=== PATIENT | male | born 1970 | race Hispanic/Latino ===

== ENCOUNTER 2020-08-31 16:24 | Inpatient (IN) | payer OTHER ==
[~2020-08-31 16:24] MED LIST: Iopamidol-370 76% 500 ML 1 ML ONE
[2020-08-31] MEDS ORDERED: cefTRIAXone\\ROCEPHIN 2 GM VIAL ONE (16:42)
[2020-08-31] MEDS ORDERED: Aspirin Chewable 81 MG TAB ONE (16:42)
[2020-08-31] MEDS ORDERED: Azithromycin 500 MG VIAL ONE (16:42)
[2020-08-31 17:27] LABS: ALT (SGPT) 146 U/L (8-55); AST (SGOT) 156 U/L (5-34); Albumin 3.7 g/dL (3.5-5.0); Alkaline Phosphatase 99 U/L (40-110); Anion Gap 13 mmol/L (10-20); BUN (Urea Nitrogen) 13 mg/dL (8.9-20.6); Bilirubin, Total 3.9 mg/dL (0.2-1.2); CK (CPK) 316 U/L (30-200); Calc. Creatinine Clearance 0 mL/min (70-130); Calcium 8.5 mg/dL (7.8-10.44); Carbon Dioxide 27 mmol/L (22-29); Chloride 100 mmol/L (98-107); Globulin 4.5 g/dL (2.4-3.5); Glucose 120 mg/dL (70-105); Lipase 6 U/L (8-78); Potassium 4.7 mmol/L (3.5-5.1); Protein, Total 8.2 g/dL (6.0-8.3); Sodium 135 mmol/L (136-145)
[2020-08-31 17:30] LABS: Band 21 % (5-11); Eosinophils 1 % (0-10); Hemoglobin 18.6 g/dL (14.0-18.0); Lymphocytes 8 % (21-51); MDiff Complete? YES; Mean Corpuscular HGB CONC 32.4 g/dL (32.0-36.0); Mean Corpuscular Hemoglobin 31.9 pg (27.0-31.0); Mean Corpuscular Volume 98.5 fL (78.0-98.0); Mean Platelet Volume 9.1 fL (7.4-10.4); Monocytes 8 % (0-10); Neutrophil 59 % (42-75); Platelet Count 131 thou/uL (130-400); Platelet Morphology Comment Appears Adequate; RBC Distribution Width 12.5 % (11.5-14.5); RBC Morphology Normal; Reactive Lymphocytes 3 % (0-10); Red Blood Cell (RBC) Count 5.83 mill/uL (4.70-6.10); White Blood Cell (WBC) Count 20.9 thou/uL (4.8-10.8)
[2020-08-31] MEDS ORDERED: Acetaminophen 500 MG TAB ONE (17:45)
[2020-08-31] MEDS ORDERED: Vancomycin 1 GM/200 ML BAG ONE (18:22)
--- NOTE | 2020-08-31 18:25 | PDOC.HHP ---
Hospitalist HPI Shortness of breath History of Present Illness: The patient is a 49-year-old male with no significant past medical history who presented to an outside ER facility planing of left-sided lower chest and flank pain. His pain was worse with inspiration. He underwent CT scan of the abdomen which did not show any acute abdominal findings but revealed findings suggestive of pneumonia bilaterally. The patient left AMA and try to go back home, however, he was unable to do that due to shortness of breath and instead he presented to our ER. Upon presentation, he was found to be hypoxic and his initial work-up revealed leukocytosis. His D-dimer was slightly elevated subsequent CT angiogram of the chest revealed bilateral pneumonia. Past History: PMHx: No past medical history PSHx: Appendectomy, cholecystectomy FHx: Noncontributory to his current presentation Social: Socially, denies smoking or illicit drug use. Hospitalist HPI ROS All other systems reviewed; all pertinent +/- noted in HPI/Subj Hospitalist Exam General Appearance: awake alert ENT: normocephalic atraumatic Neck: supple Heart: RRR Respiratory: normal chest expansion, rhonchi, tachypneic Extremities: no cyanosis, no clubbing Neurological: cranial nerve grossly intact, no focal deficits Hospitalist Results Result Diagrams: 08/31/20 16:48 08/31/20 16:48 Lab results: Laboratory Last Values WBC 20.9 thou/uL (4.8-10.8) H 08/31/20 16:48 RBC 5.83 mill/uL (4.70-6.10) 08/31/20 16:48 Hgb 18.6 g/dL (14.0-18.0) H 08/31/20 16:48 Hct 57.4 % (42.0-52.0) H 08/31/20 16:48 MCV 98.5 fL (78.0-98.0) H 08/31/20 16:48 MCH 31.9 pg (27.0-31.0) H 08/31/20 16:48 MCHC 32.4 g/dL (32.0-36.0) 08/31/20 16:48 RDW 12.5 % (11.5-14.5) 08/31/20 16:48 Plt Count 131 thou/uL (130-400) 08/31/20 16:48 MPV 9.1 fL (7.4-10.4) 08/31/20 16:48 Neutrophils % (Manual) 59 % (42-75) 08/31/20 16:48 Band Neuts % (Manual) 21 % (5-11) H 08/31/20 16:48 Lymphocytes % (Manual) 8 % (21-51) L 08/31/20 16:48 Reactive Lymphs % 3 % (0-10) 08/31/20 16:48 Monocytes % (Manual) 8 % (0-10) 08/31/20 16:48 Eosinophils % (Manual) 1 % (0-10) 08/31/20 16:48 Plt Morphology Comment Appears Adequate 08/31/20 16:48 RBC Morph Comment Normal 08/31/20 16:48 D-Dimer 0.47 *mcg/mL (0.27-0.43) H 08/31/20 16:48 Sodium 135 mmol/L (136-145) L 08/31/20 16:48 Potassium 4.7 mmol/L (3.5-5.1) 08/31/20 16:48 Chloride 100 mmol/L (98-107) 08/31/20 16:48 Carbon Dioxide 27 mmol/L (22-29) 08/31/20 16:48 Anion Gap 13 mmol/L (10-20) 08/31/20 16:48 BUN 13 mg/dL (8.9-20.6) 08/31/20 16:48 Creatinine 0.91 mg/dL (0.7-1.3) 08/31/20 16:48 Estimated GFR (MDRD) 89 08/31/20 16:48 Glucose 120 mg/dL (70-105) H 08/31/20 16:48 Lactic Acid 1.7 mmol/L (0.5-2.2) 08/31/20 17:10 Calcium 8.5 mg/dL (7.8-10.44) 08/31/20 16:48 Total Bilirubin 3.9 mg/dL (0.2-1.2) H 08/31/20 16:48 AST 156 U/L (5-34) H 08/31/20 16:48 ALT 146 U/L (8-55) H 08/31/20 16:48 Alkaline Phosphatase 99 U/L (40-110) 08/31/20 16:48 Creatine Kinase 316 U/L (30-200) H 08/31/20 16:48 Troponin I 0.017 ng/mL (< 0.028) 08/31/20 16:48 B-Natriuretic Peptide 28.5 pg/mL (0-100) 08/31/20 17:10 Serum Total Protein 8.2 g/dL (6.0-8.3) 08/31/20 16:48 Albumin 3.7 g/dL (3.5-5.0) 08/31/20 16:48 Globulin 4.5 g/dL (2.4-3.5) H 08/31/20 16:48 Albumin/Globulin Ratio 0.8 g/dL (1.2-2.2) L 08/31/20 16:48 Lipase 6 U/L (8-78) L 08/31/20 16:48 Hospitalist H&P A/P (1) Acute respiratory failure with hypoxia Code(s): J96.01 - ACUTE RESPIRATORY FAILURE WITH HYPOXIA Status: Acute (2) Sepsis Code(s): A41.9 - SEPSIS, UNSPECIFIED ORGANISM Status: Acute (3) Pneumonia Code(s): J18.9 - PNEUMONIA, UNSPECIFIED ORGANISM Status: Acute Plan: The patient will be admitted to the hospital for management of sepsis secondary to bilateral pneumonia. Start IV NS at 75 cc/h. Start IV ceftriaxone and azithromycin to cover for community-acquired pneumonia.. Supplemental oxygen as needed. He recently tested negative for COVID-19 but due to his symptoms and involvement of both lungs, we will repeat the test. If the patient is Covid positive, we will initiate corticosteroids and consider starting remdesivir. Enoxaparin for DVT prophylaxis.
--- NOTE | 2020-08-31 18:27 | CT ---
CT ANGIOGRAM CHEST WITH 3D RENDERING: Date: 08/31/2020 HISTORY: Elevated D-Dimer. Flank pain. Shortness of breath. Abnormal x-ray findings. FINDINGS: There is a small left pleural effusion and minimal right pleural fluid or pleural thickening. There a re bibasilar pulmonary parenchymal changes, more confluent in the left base, evidence for bilateral p neumonia. There are some smaller scattered ground-glass opacity changes in the upper and mid lung zon es. Features could possibly be related to COVID pneumonia, but are not characteristic. There is moderate motion artifact which lowers the sensitivity of this study, particularly regarding evaluating mid and distal smaller caliber pulmonary arteries, particularly in the mid and lower lung zones. There is certainly no evidence for central pulmonary artery thrombosis. No mediastinal mass or adenopathy. No pericardial effusion. Visualized abdomen is unremarkable. IMPRESSION: 1. No convincing evidence for pulmonary artery embolism, although the mid and smaller caliber branch es, particularly in the lower lobes, are somewhat less than optimally imaged. 2. Small left pleural effusion and minimal right pleural thickening or minute effusion with bibasila r pulmonary and parenchymal changes, more confluent in the left lower lobe, certainly consistent with pneumonia, but not definitively COVID pneumonia. 3. Status post cholecystectomy. 4. No evidence for other significant acute process. POS: RRE
[2020-08-31] MEDS ORDERED: Ondansetron PF 4 MG/2 ML Vial ONE (18:36)
[2020-08-31 18:54] LABS: Bacteria/HPF None Seen HPF (None Seen); Bilirubin 1+ (Negative); Blood, Urine 1+ (Negative); Clarity Clear (Clear); Glucose, Urine (Dipstick) Normal (Negative); Ketone, Urine Negative (Negative); Leukocyte Negative Leu/uL (Negative); Nitrite Negative (Negative); Protein, Urine (Dipstick) 10 mg/dL (Neg-Trace); Specific Gravity, Urine 1.027 (1.002-1.036); Squamous Epithelial None Seen HPF (0-3); Urobilinogen 12 mg/dL (Less than 2); WBC/HPF None Seen HPF (0-3)
[2020-08-31 19:06] LABS: RBC/HPF 0-3 HPF (0-3)
[2020-08-31 22:40] VITALS: BMI 35.2
[2020-08-31] MEDS: Sodium Chloride 0.9% 1,000 ML IV SCH (22:55)
[2020-09-01] MEDS: Acetaminophen 325 MG TAB PO PRN ×3 (00:04→20:36)
[2020-09-01] MEDS ORDERED: Ketorolac Tromethamine 30 MG/ML VIAL IVP SCH (00:30)
[2020-09-01 01:19] LABS: SARS-CoV-2 PCR by NAA Not Detected (NotDetected)
[2020-09-01] MEDS ORDERED: Acetaminophen 325 MG TAB ONE (08:12)
[2020-09-01] MEDS ORDERED: Enoxaparin Sodium 40 MG/0.4 ML SYRINGE ONE (08:12)
[2020-09-01] MEDS ORDERED: FLU VACC QS2020-21(6MOS UP)/PF 60 MCG/0.5 ML SYRINGE IM ONE (09:00)
[2020-09-01] MEDS ORDERED: Iopamidol-370 76% 500 ML 1 ML ONE (12:06)
[2020-09-01] MEDS ORDERED: traMADol HCl 50 MG TAB PO PRN (12:18)
[2020-09-01] MEDS ORDERED: predniSONE 20 MG TAB PO SCH (13:00)
--- NOTE | 2020-09-01 13:06 | CON ---
DATE OF CONSULTATION: 09/01/2020 CONSULTING PHYSICIAN: Dr. Brooke. REASON FOR CONSULTATION: Pneumonia. HISTORY OF PRESENT ILLNESS: The patient is a 49-year-old male, who was visiting this area this weekend for [employer]. He is from [place], [place]. Yesterday, he began having left-sided flank and chest pain. It was worse on inspiration. He says he cannot travel back to [place] because he felt so bad. He came to the emergency room, had a CT pulmonary angiogram of the chest, which did not show a clot, but did show a very tiny pleural effusion on the left. He says he had some hematuria, but his urine did not show this, and based on his LFTs and CPK, my guess is he was having myoglobinuria. PAST MEDICAL HISTORY: Unremarkable. PAST SURGICAL HISTORY: Appendectomy, and cholecystectomy. FAMILY MEDICAL HISTORY: Unremarkable. SOCIAL HISTORY: Nonsmoker. Does not consume alcohol. He was recently laid off from his job. REVIEW OF SYSTEMS: Remarkable for the chest pain. Otherwise, negative. PHYSICAL EXAMINATION: VITAL SIGNS: Temperature 98.2, pulse 101, respirations 18, O2 saturation 91% on room air, blood pressure 133/82. HEENT: Unremarkable. NECK: No adenopathy or JVD. LUNGS: With diminished breath sounds at both bases. Slight crackles in both bases. CARDIAC: S1, S2. Regular. ABDOMEN: Soft. EXTREMITIES: No edema. LABORATORY DATA: White blood cell count 20.9, hematocrit 57.4, and platelet count 131. D-dimer 0.47. Sodium 135, potassium 4.7, chloride 100, CO2 of 27, BUN 13, creatinine 0.9, glucose 120. AST 156, ALT 146, CPK 316. BNP 28.5. Troponin 0.017. Lipase 6. Urinalysis showed 1+ blood, but no red blood cells indicating this is myoglobinuria. His COVID test was negative. I reviewed the CT scan personally and agree with radiologist read. ASSESSMENT: 1. Atypical left chest pain suggestive of pleurisy. He has a small pleural effusion, which is too small to tap. However, this could be the cause of his pain. Proximal to this, he has some atelectasis or pneumonia-very difficult to tell. This is not a typical appearance of COVID. 2. Left-sided flank pain. Also has pulmonary emboli and kidney stones in the differential. However, the lack of blood in the urine and the lack of findings on CT pulmonary angiogram suggests this is probably not the case. RECOMMENDATIONS: I would treat him as you are with antibiotics. I would give him pain medication as needed. I would add some steroids and see if it helps. I will be happy to follow along with you peripherally. Job ID: [id number]
--- NOTE | 2020-09-01 13:14 | PDOC.HOSPP ---
- Subjective Encounter Date: 09/01/20 Encounter Time: 13:13 Subjective: F/u: pneumonia, flank pain The patient reports left flank pain that started two days ago. His pain is constant if he does not take pain meds. He has 10/10 pain currently, states tramadol helped last night, but only lasted for four hours. He also noticed blood in his urine. He denies dysuria He denies cough or shortness of breath. He states it does hurt some to take a deep breath. He is sexually active with more than one partner currently, declines any HIV testing at this time - Objective Vital Signs & Weight: Vital Signs (12 hours) Temp Pulse Resp BP Pulse Ox 09/01/20 09:56 98.2 F 101 H 18 133/82 91 L 09/01/20 08:55 91 L Weight Weight 253 lb Result Diagrams: 08/31/20 16:48 08/31/20 16:48 Hospitalist ROS - Review of Systems Constitutional: denies: fever, chills - Medication Medications: Active Medications Generic Name Dose Route Start Last Admin Trade Name Freq PRN Reason Stop Dose Admin Acetaminophen 650 mg 08/31/20 18:31 09/01/20 00:04 Acetaminophen 325 Mg Tab PO 650 mg Q4H PRN Administration Headache/Fever/Mild Pain (1-3) Sodium Chloride 1,000 mls @ 75 mls/hr 08/31/20 18:45 08/31/20 22:55 Normal Saline 0.9% IV 1,000 mls .[id number] DARRION Administration Ketorolac Tromethamine 30 mg 09/01/20 00:30 09/01/20 00:34 Ketorolac Tromethamine 30 Mg/Ml Vial IVP 09/01/20 03:00 30 mg NOW DARRION Administration Hospitalist Exam Vitals: Vital Signs (12 hours) Temp Pulse Resp BP Pulse Ox 09/01/20 09:56 98.2 F 101 H 18 133/82 91 L 09/01/20 08:55 91 L Weight Weight 253 lb General Appearance: NAD, awake alert Eye: PERRL ENT: normocephalic atraumatic, no oropharyngeal lesions Neck: no JVD Heart: RRR, no murmur, no gallops, no rubs Respiratory: CTAB, no wheezes, no rales, no ronchi Gastrointestinal: soft, non-distended, no hepatomegaly Gastrointestinal - other findings: left CVA tenderness Extremities: no cyanosis, no clubbing, no edema Skin: normal turgor, no lesions, no rashes Neurological: cranial nerve grossly intact, normal sensation to touch, no weakness Hosp A/P - Plan CTA chest: no PE. Small left pleural effusion. Bilateral pneumonia worst in left lower lobe This is a 49 year old male who presented with two day history of left flank pain, hematuria. He was found to have bilateral pneumonia. He has had two negative COVID tests Possible sepsis from pneumonia vs pyelonephritis? - tachycardic, but afebrile, WBC of 20. CT shows pneumonia worst in left lower lobe. COVID negative. Patient declines HIV test at this time - his main symptom is more flank pain and hematuria, so will order CT abdomen - will order toradol prn for pain, fentanyl prn for pain and tramadol prn for pain - waiting on repeat CBC Transaminitis - LFT elevated, patient declines hepatitis testing currently . Ordered repeat LFTS
[2020-09-01] MEDS ORDERED: traMADol HCl 50 MG TAB ONE (13:49)
[2020-09-01] MEDS: Enoxaparin Sodium 40 MG/0.4 ML SYRINGE SC SCH (14:07)
[2020-09-01] MEDS: Sodium Chloride 0.9% 1,000 ML IV SCH ×2 (14:07→20:35)
[2020-09-01 14:12] LABS: Anion Gap 10 mmol/L (10-20); BUN (Urea Nitrogen) 11 mg/dL (8.9-20.6); Calc. Creatinine Clearance 141 mL/min (70-130); Calcium 8.2 mg/dL (7.8-10.44); Carbon Dioxide 26 mmol/L (22-29); Chloride 103 mmol/L (98-107); Glucose 119 mg/dL (70-105); Potassium 4.4 mmol/L (3.5-5.1); Sodium 135 mmol/L (136-145)
[2020-09-01] MEDS ORDERED: predniSONE 20 MG TAB ONE (14:55)
[2020-09-01] MEDS: Morphine 2 MG/ML VIAL SLOW IVP PRN ×2 (15:02→20:23)
[2020-09-01] MEDS: cefTRIAXone\\ROCEPHIN 1 GM in Sodium Chloride 0.9% 100 ML IVPB SCH (15:47)
[2020-09-01 16:28] LABS: Band 32 % (5-11); Hemoglobin 17.4 g/dL (14.0-18.0); Lymphocytes 3 % (21-51); MDiff Complete? YES; Macrocytosis SLIGHT = 6-15 cells (100X) (0-5/hpf); Mean Corpuscular HGB CONC 32.2 g/dL (32.0-36.0); Mean Corpuscular Hemoglobin 32.3 pg (27.0-31.0); Mean Platelet Volume 10.1 fL (7.4-10.4); Monocytes 11 % (0-10); Neutrophil 51 % (42-75); Platelet Count 114 thou/uL (130-400); Platelet Morphology Comment Appears Decreased; Polychromasia SLIGHT = 2-3 cells (100X) (0-2/hpf); RBC Distribution Width 12.5 % (11.5-14.5); Reactive Lymphocytes 3 % (0-10); Red Blood Cell (RBC) Count 5.37 mill/uL (4.70-6.10); White Blood Cell (WBC) Count 18.8 thou/uL (4.8-10.8)
[2020-09-01] MEDS: Azithromycin 500 MG in Sodium Chloride 0.9% 250 ML 250 ML IVPB SCH (17:30)
[2020-09-01] MEDS: traMADol HCl 50 MG TAB PO PRN ×2 (17:31→23:48)
--- NOTE | 2020-09-01 18:47 | CT ---
CT ABDOMEN AND PELVIS WITH IV CONTRAST: 09/01/20 INDICATIONS: Left flank pain with hematuria. COVID positive. COMPARISON: CT chest from 08/31/2020. FINDINGS: Images through the lung bases again show left pleural effusion, slightly larger than yesterday, with dense left basilar consolidation and atelectasis, similar to yesterday. The liver, spleen and pancreas are unremarkable. Post cholecystectomy changes again noted. The stomac h and duodenum are unremarkable. The adrenal glands and kidneys are unremarkable. There is mild bilat eral perinephric stranding and haziness, which could represent pyelonephritis, given the history of f lank pain and hematuria. There is no evidence of urinary tract calculus. The ureters are of normal ca liber. The urinary bladder is unremarkable. Small bowel loops are of normal caliber. Appendix is not definitely delineated. There is some strandi ng in the posterior gutters, however no definite evidence of appendicitis. The colon is otherwise unr emarkable. Images through the pelvis are unremarkable. The prostate is unremarkable. The aorta is of normal caliber. IMPRESSION: 1. There is mild perinephric stranding without evidence of urinary calcification or obstruction. 2. Left effusion with dense left lung base atelectasis and consolidation. POS: AGW
[2020-09-02] MEDS: Morphine 2 MG/ML VIAL SLOW IVP PRN (05:47)
[2020-09-02] MEDS: Enoxaparin Sodium 40 MG/0.4 ML SYRINGE SC SCH (08:20)
[2020-09-02] MEDS: predniSONE 20 MG TAB PO SCH (08:20)
[2020-09-02] MEDS: Sodium Chloride 0.9% 1,000 ML IV SCH ×2 (09:59→23:04)
[2020-09-02] MEDS: Ketorolac Tromethamine 30 MG/ML VIAL IVP PRN ×3 (10:02→23:04)
--- NOTE | 2020-09-02 11:08 | PRG ---
DATE OF SERVICE: 09/02/2020 SUBJECTIVE: The patient says he feels better. OBJECTIVE: VITAL SIGNS: Temperature of 100, pulse 105, O2 saturation 92% on room air, blood pressure 129/88. HEENT: Unremarkable. NECK: No adenopathy or JVD. LUNGS: Slightly diminished breath sounds at left base. CARDIAC: S1 and S2, regular. ABDOMEN: Soft. EXTREMITIES: No edema. IMAGING STUDIES: Previous CT of the abdomen from yesterday definitely has left lower lobe pneumonia and probably a small parapneumonic effusion. ASSESSMENT: Community-acquired bacterial pneumonia with small parapneumonic effusion. PLAN: 1. Continue broad-spectrum IV antibiotics. Low-dose steroids. 2. Increase activity as tolerated. 3. Hopefully, this will not evolve into an empyema. Job ID: [id number]
[2020-09-02 12:20] LABS: Hemoglobin 17.7 g/dL (14.0-18.0); Mean Corpuscular HGB CONC 33.5 g/dL (32.0-36.0); Mean Corpuscular Hemoglobin 33.2 pg (27.0-31.0); Mean Corpuscular Volume 99.3 fL (78.0-98.0); Mean Platelet Volume 9.4 fL (7.4-10.4); Platelet Count 145 thou/uL (130-400); RBC Distribution Width 12.2 % (11.5-14.5); Red Blood Cell (RBC) Count 5.32 mill/uL (4.70-6.10); White Blood Cell (WBC) Count 19.3 thou/uL (4.8-10.8)
[2020-09-02 12:48] LABS: ALT (SGPT) 57 U/L (8-55); AST (SGOT) 25 U/L (5-34); Albumin 3.3 g/dL (3.5-5.0); Alkaline Phosphatase 78 U/L (40-110); Bilirubin, Direct 0.6 mg/dL (0.1-0.3); Bilirubin, Total 1.2 mg/dL (0.2-1.2); Protein, Total 7.3 g/dL (6.0-8.3)
[2020-09-02] MEDS: cefTRIAXone\\ROCEPHIN 1 GM in Sodium Chloride 0.9% 100 ML IVPB SCH (15:02)
--- NOTE | 2020-09-02 15:51 | PDOC.HOSPP ---
- Subjective Encounter Date: 09/02/20 Encounter Time: 12:00 Subjective: F/u: pneumonia The patient states that he is doing better. He still has pain in his left flank but improved. He has minimal dry cough, no SOB - Objective Vital Signs & Weight: Vital Signs (12 hours) Temp Pulse Resp BP Pulse Ox 09/02/20 15:00 98.7 F 108 H 18 143/99 H 91 L 09/02/20 10:51 100.0 F H 105 H 18 129/88 92 L 09/02/20 08:00 91 L 09/02/20 07:12 99.1 F 97 18 122/87 93 L 09/02/20 05:57 98.8 F 92 18 139/96 H 93 L Weight Weight 253 lb I&O: 09/01/20 09/02/20 09/03/20 06:59 06:59 06:59 Output Total 750 1000 Balance -750 -1000 Result Diagrams: 09/02/20 11:45 09/01/20 03:30 Hospitalist ROS - Review of Systems Constitutional: denies: fever, chills - Medication Medications: Active Medications Generic Name Dose Route Start Last Admin Trade Name Freq PRN Reason Stop Dose Admin Acetaminophen 650 mg 08/31/20 18:31 09/01/20 20:36 Acetaminophen 325 Mg Tab PO 650 mg Q4H PRN Administration Headache/Fever/Mild Pain (1-3) Enoxaparin Sodium 40 mg 09/01/20 09:00 09/02/20 08:20 Enoxaparin Sodium 40 Mg/0.4 Ml Syringe SC 40 mg 0900 DARRION Administration Ceftriaxone Sodium 1 gm/ 100 mls @ 200 mls/hr 09/01/20 16:00 09/02/20 15:02 Sodium Chloride IVPB 100 mls Q24HR DARRION Administration Azithromycin 500 mg/ Sodium 250 mls @ 250 mls/hr 09/01/20 18:00 09/01/20 17:30 Chloride IVPB 250 mls Q24HR DARRION Administration Sodium Chloride 1,000 mls @ 75 mls/hr 08/31/20 18:45 09/02/20 09:59 Normal Saline 0.9% IV 1,000 mls .[id number] DARRION Administration Influenza Virus Vaccine Quadrival 60 mcg 09/01/20 09:00 09/01/20 14:08 Flu Vacc [id number](6mos Up)/Pf 60 Mcg/0.5 Ml Syringe IM 09/01/20 09:01 Not Given .ONCE ONE Ketorolac Tromethamine 30 mg 09/01/20 00:30 09/01/20 00:34 Ketorolac Tromethamine 30 Mg/Ml Vial IVP 09/01/20 03:00 30 mg NOW DARRION Administration Ketorolac Tromethamine 15 mg 09/01/20 13:44 09/02/20 10:02 Ketorolac Tromethamine 30 Mg/Ml Vial IVP 09/06/20 13:45 15 mg Q6H PRN Administration Pain Morphine Sulfate 2 mg 09/01/20 13:43 09/02/20 05:47 Morphine 2 Mg/Ml Vial SLOW IVP 2 mg Q4H PRN Administration Severe Pain (7-10) Prednisone 40 mg 09/02/20 09:00 09/02/20 08:20 Prednisone 20 Mg Tab PO 40 mg DAILY DARRION Administration Tramadol HCl 25 mg 09/01/20 13:44 09/01/20 23:48 Tramadol Hcl 50 Mg Tab PO 25 mg Q6H PRN Administration Moderate Pain (4-6) Hospitalist Exam Vitals: Vital Signs (12 hours) Temp Pulse Resp BP Pulse Ox 09/02/20 15:00 98.7 F 108 H 18 143/99 H 91 L 09/02/20 10:51 100.0 F H 105 H 18 129/88 92 L 09/02/20 08:00 91 L 09/02/20 07:12 99.1 F 97 18 122/87 93 L 09/02/20 05:57 98.8 F 92 18 139/96 H 93 L Weight Weight 253 lb General Appearance: NAD, awake alert Eye: PERRL, anicteric sclera ENT: normocephalic atraumatic, no oropharyngeal lesions Neck: no JVD Heart: RRR, no murmur, no gallops, no rubs Respiratory: CTAB, no wheezes, no rales, no ronchi Gastrointestinal: soft, non-tender, non-distended, normal bowel sounds, no splenomegaly Extremities: no cyanosis, no clubbing, no edema Skin: normal turgor, no lesions, no rashes Neurological: cranial nerve grossly intact, normal sensation to touch, no weakness Musculoskeletal: normal tone, normal strength, no muscle wasting Psychiatric: normal affect, normal behavior, A&O x 3, oriented to person Hosp A/P - Plan CTA chest: no PE. Small left pleural effusion. Bilateral pneumonia worst in left lower lobe CT abdomen: mild perinephric stranding This is a 49 year old male who presented with two day history of left flank pain, hematuria. He was found to have bilateral pneumonia. He has had two negative COVID tests Sepsis from pneumonia vs pyelonephritis - tachycardic, but afebrile, WBC of 20. CT shows pneumonia worst in left lower lobe. COVID negative. Patient declines HIV test at this time. CT abdomen showed mild perinephric stranding - continue ceftriaxone and azithromycin. WBC went down to 18 but went back up to 19, so will monitor for another day - continue pain meds with toradol, fentanyl and tramadol Transaminitis -LFTs improved, will monitor
[2020-09-02] MEDS: Azithromycin 500 MG in Sodium Chloride 0.9% 250 ML 250 ML IVPB SCH (17:01)
[2020-09-03 07:19] LABS: Hemoglobin 16.7 g/dL (14.0-18.0); Mean Corpuscular HGB CONC 32.7 g/dL (32.0-36.0); Mean Corpuscular Hemoglobin 32.3 pg (27.0-31.0); Mean Corpuscular Volume 98.8 fL (78.0-98.0); Mean Platelet Volume 8.7 fL (7.4-10.4); Platelet Count 170 thou/uL (130-400); RBC Distribution Width 12.1 % (11.5-14.5); Red Blood Cell (RBC) Count 5.18 mill/uL (4.70-6.10); White Blood Cell (WBC) Count 17.2 thou/uL (4.8-10.8)
[2020-09-03 07:39] LABS: ALT (SGPT) 89 U/L (8-55); AST (SGOT) 56 U/L (5-34); Alkaline Phosphatase 83 U/L (40-110); Anion Gap 11 mmol/L (10-20); BUN (Urea Nitrogen) 14 mg/dL (8.9-20.6); Calc. Creatinine Clearance 153 mL/min (70-130); Calcium 8.4 mg/dL (7.8-10.44); Carbon Dioxide 24 mmol/L (22-29); Chloride 105 mmol/L (98-107); Globulin 3.8 g/dL (2.4-3.5); Glucose 111 mg/dL (70-105); Protein, Total 6.8 g/dL (6.0-8.3); Sodium 136 mmol/L (136-145)
[2020-09-03] MEDS: predniSONE 20 MG TAB PO SCH (08:27)
[2020-09-03] MEDS: Enoxaparin Sodium 40 MG/0.4 ML SYRINGE SC SCH (08:27)
[2020-09-03] MEDS: Acetaminophen 325 MG TAB PO PRN (11:53)
--- NOTE | 2020-09-03 12:48 | PRG ---
DATE OF SERVICE: 09/03/2020 SUBJECTIVE: The patient says he feels better. Has no acute complaints. OBJECTIVE: VITAL SIGNS: Temperature is 99.0 with a T-max of 100.0 yesterday, pulse 96, O2 saturation 93% on room air, blood pressure 137/83. HEENT: Unremarkable. NECK: No adenopathy or JVD. LUNGS: He has diminished breath sounds in the left base and dullness to percussion. Right side is clear. CARDIAC: S1 and S2. Regular. ABDOMEN: Soft. EXTREMITIES: No edema. LABORATORY DATA: White blood cell count 17.2, hematocrit 51, platelet count 170. Sodium 136, potassium 4, chloride 105, CO2 of 24, BUN 14, creatinine 0.9, glucose 111. ASSESSMENT: Left-sided community-acquired pneumonia with likely parapneumonic effusion. PLAN: We will go ahead and get a chest x-ray today and see how this looks. He may need a diagnostic and therapeutic left thoracentesis. Continue antibiotics and steroids. Job ID: [id number]
[2020-09-03] MEDS: Sodium Chloride 0.9% 1,000 ML IV SCH (13:00)
--- NOTE | 2020-09-03 13:57 | RAD ---
CHEST 1 VIEW: HISTORY: Pneumonia. COMPARISON: Radiograph 3 days prior. FINDINGS: There is mild right middle lobe, right lower lobe, as well as more dense lingular and left lower lobe consolidation. No pneumothorax. Heart size is at upper limits of normal. No acute osseous abnorma lity. IMPRESSION: Similar examination of the chest with multifocal pneumonia. POS: HOME
[2020-09-03] MEDS: cefTRIAXone\\ROCEPHIN 1 GM in Sodium Chloride 0.9% 100 ML IVPB SCH (15:05)
[2020-09-03 15:48] VITALS: BP 145/94; TEMP 98.6
--- NOTE | 2020-09-03 17:20 | PQF ---
CLINICAL DOCUMENTATION CLARIFICATION FORM: Dear Dr. Katharine Martinez Date: 09.03.20 Please exercise your independent, professional judgment in responding to the clarification form. Clinical indicators are provided on the bottom of this form for your review. Please check appropriate box(es) to clarify if the following diagnosis has been ruled in our ruled out: Sepsis [ X ] Ruled in diagnosis [ ] Continue to treat [ ] Resolved [ ] Ruled out diagnosis [ ] Improving [ ] Cannot rule out diagnosis [ ] Other diagnosis [ ] Unable to determine For continuity of documentation, please document condition throughout progress notes and discharge summary. Thank You. To be completed by CDI/Coding staff for physician review: CLINICAL INDICATORS - SIGNS / SYMPTOMS / LABS / RESULTS AND LOCATION IN MR ED: SEPSIS; bilateral PNA w/ hypoxia RR 16-20 O2 SAT 84-98% on RA P 80-103 LABS: WBC 2.14 20.9 2.15 18.8 2.16 19[address] Chest: Small left pleural effusion and minimal right pleural thickening or minute effusion w/ bibasilar pulmonary and parenchymal changes, more confluent in the left lower lobe, certainly consistent w/ pneumonia. 2.14 H&P (Alnazeer): Acute respiratory failure w/hypoxia; sepsis; PNA - community acquired 2.15 PN (Michelle): * Possible sepsis from PNA vs pyelonephritis RISK FACTORS / RESULTS AND LOCATION IN MR 2.14 H&P (Alnazeer): * No past medical hx * Bilateral Pneumonia TREATMENTS / RESULTS AND LOCATION IN MR 2.14 H&P (Alnazeer): *stared IV NS at 75cc/hr * started IV ceftriaxone and azithromycin to cover community-acquired PNA *supplemental oxygen as needed CDS Signature: Suha Mclaughlin RN, CCDS Phone #: [phone] [email or web address] This is a permanent part of the Medical Record [facility]
--- NOTE | 2020-09-03 21:04 | PDOC.DS.DS ---
Provider Date of Admission: 08/31/20 18:22 Date of Discharge: 09/03/20 Admitting Provider: Austen Brooke MD Consultations: Pulmonary (Dr. Ding) Primary Care Physician: OUT OF TOWN Course Hospital Course: Discharge Diagnoses: 1. Sepsis secondary to pneumonia vs pyelonephritis 2. Transaminitis Brief HPI: This is a 49 year old male with no past medical history who presented to the ER with left flank pain, hypoxia with an oxygen saturation of 84%, fever and tachycardia. He left AMA and came back due to shortness of breath. He had a negative COVID test two days ago. WBC was 20 and D-dimer was elevated so CTA chest was done which showed pneumonia. He was started on antibiotics and admitted for further workup. Hospital Course: Sepsis secondary to multifocal pneumoni vs pyelonephritis: the patient was started on ceftriaxone and azithromycin. Due to persistent flank pain, CT abdomen was done which showed mild perinephric stranding. UA was unremarkable however, but patient reports being sexually active with more than one partner. He refused HIV or STD testing. His WBC improved to 17 at the time of discharge and his flank pain and pleuritic pain markedly improved. He was discharged with cefdinir and azithromycin for five days to complete a seven day course of antibiotics. He should get a repeat chest XRay in 6 weeks. Pertinent Studies: Chest Xray 09/03: multifocal pneumonia CT abdomen 09/01: mild perinephric stranding. Left effusion with dense left lung base atelectasis and consolidation CTA chest 08/31: small left pleural effusion more confluent in left lower lobe Lab Results: 09/03/20 07:01 09/03/20 07:01 Abnormal Lab Results - Last 48 hrs 09/02/20 11:45: Direct Bilirubin 0.6 H, ALT 57 H, Albumin 3.3 L 09/02/20 11:45: WBC 19.3 H, Hct 52.8 H, MCV 99.3 H, MCH 33.2 H 09/03/20 07:01: WBC 17.2 H, MCV 98.8 H, MCH 32.3 H 09/03/20 07:01: AST 56 H, ALT 89 H, Albumin 3.0 L, Globulin 3.8 H, Albumin/Globulin Ratio 0.8 L Microbiology - Entire Visit 08/31/20 17:57 Urine voided Urine Culture - Final NO GROWTH AT 36 HOURS 08/31/20 17:10 Venous blood - Right Hand Blood Culture - Preliminary NO GROWTH AT 48 HOURS 08/31/20 16:48 Venous blood - Left Arm Blood Culture - Preliminary NO GROWTH AT 48 HOURS Vitals: Vital Signs (12 hours) Temp Pulse Resp BP BP Pulse Ox 09/03/20 15:47 98.6 F 78 18 145/94 H 95 09/03/20 12:00 99 F 89 18 134/87 93 L Weight Weight 253 lb Physical Exam: The patient was seen and examined on the day of discharge. General Appearance: NAD, awake alert Eye: PERRL, anicteric sclera ENT: normocephalic atraumatic, no oropharyngeal lesions Neck: supple, no JVD Respiratory: CTAB, no wheezes, no rales, no ronchi Cardiovascular: RRR, no murmur, no gallops, no rubs Gastrointestinal: soft, non-tender, non-distended, normal bowel sounds, no palpable masses, no hepatomegaly Extremities: no cyanosis, no clubbing, no edema Skin: normal turgor, no lesions, no rashes Neurological: cranial nerve grossly intact, normal sensation to touch, no weakness, no focal deficits Musculoskeletal: normal tone, normal strength, no muscle wasting Plan Prescriptions: Cefdinir 300 mg PO Q12HR #10 capsule Azithromycin 250 mg PO DAILY #5 tablet Home Medications: Medication Instructions Recorded Confirmed Type Azithromycin 250 mg PO DAILY #5 tablet 09/03/20 Rx Cefdinir 300 mg PO Q12HR #10 capsule 09/03/20 Rx Allergies: No Known Allergies Allergy (Verified 08/31/20 22:38) Activity:: Activity as Tolerated Nourishment:: Regular Diet Referrals: [facility],OUT OF [Primary Care Provider] - (follow up in 1 week) [place] Ding MD [Active] - (as instructed) Disposition: HOME Quality CORE MEASURES:: N/A
== END 2020-09-03 16:26 | disposition home or self-care (01) | DRG 871 ==
LOC: ERS 16:24 → T4-A 18:22
PROVIDERS: ADMIT Internal Medicine; ATTEND Internal Medicine
DX: A41.9 Sepsis, unspecified organism (principal); J18.9 Pneumonia, unspecified organism; J96.01 Acute respiratory failure with hypoxia; N12 Tubulo-interstitial nephritis, not specified as acute or chronic; Z20.822 Contact with and (suspected) exposure to COVID-19; R74.01 Elevation of levels of liver transaminase levels; R31.9 Hematuria, unspecified; Z90.49 Acquired absence of other specified parts of digestive tract
CPT/HCPCS: 36415; 36416; 71045; 71275; 74177; 80048; 80053; 80076; 81003; 81015; 82550; 83605; 83690; 83880; 84484; 85025; 85027; 85379; 87040; 87086; 87635; 93005; 96365; 96366; 96367; 96375; J0456; J0696; J1650; J1885; J2270; J2405; J3370; J3490; J7050; J7512; Q9967; U0003; U0005